=== PATIENT | female | born 1985 | race Caucasian/White ===

== ENCOUNTER 2016-08-31 04:25 | Emergency (ER) | payer MEDICAID ==
[~2016-08-31] VITALS: Ht 162.6 cm; Wt 87.0 kg
[~2016-08-31 04:25] MED LIST: HYDR-3138 PO; IBUP800T PO; OXYC-302 PO
[2016-08-31] MEDS ORDERED: DEXAMETHASONE 4 MG TABLET PO ONE (05:30)
[2016-08-31] MEDS ORDERED: DEXAMETHASONE 4 MG TABLET ONE (05:38)
[2016-08-31 05:44] VITALS: BP 120/69
== END 2016-08-31 05:47 | disposition home or self-care (01) ==
LOC: ED 04:31
DX: J02.0 Streptococcal pharyngitis (principal); K12.0 Recurrent oral aphthae
CPT/HCPCS: 99283

== ENCOUNTER 2017-09-13 11:33 | Emergency (ER) | payer MEDICAID ==
[~2017-09-13] VITALS: Ht 162.6 cm; Wt 79.4 kg
[~2017-09-13 11:33] MED LIST changes: -HYDR-3138 PO; +HYDR-3237 PO; +IBUP-1223 PO; -IBUP800T PO
[2017-09-13 11:36] VITALS: BP 116/75
== END 2017-09-13 12:27 | disposition home or self-care (01) ==
LOC: ED 12:15
DX: K08.89 Other specified disorders of teeth and supporting structures (principal); J45.909 Unspecified asthma, uncomplicated
CPT/HCPCS: 99283

== ENCOUNTER 2018-07-10 16:25 | Inpatient (IN) | payer MEDICAID ==
[~2018-07-10] VITALS: Ht 165.1 cm; Wt 68.0 kg
--- NOTE | 2018-07-10 16:35 | NUR ---
LUNCH RN: MD TO BEDSIDE TO ASSESS PT.
[2018-07-10] MEDS ORDERED: ZIPRASIDONE 20 MG INJ IM ONE ×2 (17:08→17:30)
--- NOTE | 2018-07-10 17:15 | NUR ---
Patient being combative with staff. No easily redirected or verbally de-secalated. Yi admin.
[2018-07-10 17:30] LABS: ANION GAP 13 mmol/L (5-15); CALCIUM 8.7 mg/dL (8.5-10.1); CHLORIDE 110 mmol/L (98-107); CREATININE 0.92 mg/dL (0.55-1.02)
[2018-07-10 17:34] LABS: SALICYLATE LEVEL < 1.7 mg/dL (2.8-20.0)
[2018-07-10 17:35] LABS: ACETAMINOPHEN < 2 mcg/mL (10-30)
--- NOTE | 2018-07-10 17:35 | NUR ---
RN assisted patient to restroom to attempt to collect urine. Unable to provided urine at this time.
--- NOTE | 2018-07-10 17:39 | NUR ---
TP RN: HBI TO ASSESS PT
[2018-07-10 17:41] LABS: BASOPHILS # (AUTO) 0.02 x10^3/uL (0-0.1); BASOPHILS % (AUTO) 0 % (0-1); EOSINOPHILS # (AUTO) 0.12 x10^3/uL (0-0.4); EOSINOPHILS % (AUTO) 1 % (1-7); LYMPHOCYTES # (AUTO) 2.29 x10^3/uL (1-3.4); LYMPHOCYTES % (AUTO) 27 % (22-44); MD NO; MEAN CORPUSCULAR HEMOGLOBIN 30.2 pg (27.0-34.8); MEAN CORPUSCULAR HGB CONC 34.3 g/dL (32.4-35.8); MEAN CORPUSCULAR VOLUME 88.2 fL (80-100); MEAN PLATELET VOLUME 9.1 fL (7.4-10.4); MONOCYTES # (AUTO) 0.74 x10^3/uL (0.2-0.8); MONOCYTES % (AUTO) 9 % (2-9); NEUTROPHILS % (AUTO) 63 % (42-75); PLATELET COUNT 268 x10^3/uL (130-400); RED BLOOD COUNT 4.38 x10^6/uL (3.82-5.3); RED CELL DISTRIBUTION WIDTH 13.9 % (9.6-15.2)
--- NOTE | 2018-07-10 17:57 | NUR ---
TP RN: DEB HERE TO ASSESS PT
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
--- NOTE | 2018-07-10 19:20 | NUR ---
Ambulated with a steady gait to the restroom. VSS. at bedside.
[2018-07-10] MEDS ORDERED: POTASSIUM CHLORIDE 20 MEQ TAB.ER.PRT PO ONE (19:30)
[2018-07-10] MEDS ORDERED: POTASSIUM CHLORIDE 20 MEQ TAB.ER.PRT ONE (19:56)
[2018-07-10] MEDS ORDERED: NICOTINE 7 MG/24 HR PATCH.TD24 ONE (19:56)
[2018-07-10 19:57] LABS: AMPHETAMINE SCREEN, URINE Positive (Negative); BARBITURATE SCREEN, URINE Negative (Negative); BENZODIAZEPINE SCREEN, URINE Negative (Negative); CANNABINOID SCREEN, URINE Positive (Negative); COCAINE SCREEN, URINE Negative (Negative); METHADONE SCREEN, URINE Negative (Negative); OPIATE SCREEN, URINE Negative (Negative)
[2018-07-10] MEDS ORDERED: ONDANSETRON ODT 4 MG PO PRN (20:00)
[2018-07-10] MEDS ORDERED: POLYETHYLENE GLYCOL 17 GM PACKET PO PRN (20:00)
[2018-07-10] MEDS ORDERED: NICOTINE 7 MG/24 HR PATCH.TD24 TD SCH (20:00)
[2018-07-10] MEDS ORDERED: BISACODYL 10 MG SUPP PR PRN (20:00)
[2018-07-10] MEDS ORDERED: ZIPRASIDONE 20MG CAPSULE PO PRN (20:00)
[2018-07-10] MEDS ORDERED: BENZTROPINE 1 MG TABLET PO PRN (20:00)
[2018-07-10] MEDS ORDERED: ACETAMINOPHEN 325 MG TABLET PO PRN (20:00)
--- NOTE | 2018-07-10 20:01 | NUR ---
PO K+ admin. Unable to chart in eMAR.
--- NOTE | 2018-07-10 20:14 | NUR ---
THROUGHPUT RN: PACKET FAXED TO [facility]
--- NOTE | 2018-07-10 20:27 | NUR ---
Provided [facility] blankets.
--- NOTE | 2018-07-10 21:12 | NUR ---
PT SLEEPING ON GURNEY AT THIS TIME, ROOM SECURED AND SITTER AT DOORWAY.
[2018-07-10 23:00] VITALS: BP 104/63
[2018-07-11 06:25] LABS: CALCIUM 8.8 mg/dL (8.5-10.1); CHLORIDE 113 mmol/L (98-107)
[2018-07-11 06:29] LABS: ANION GAP 12 mmol/L (5-15); CREATININE 0.74 mg/dL (0.55-1.02)
[2018-07-11 07:43] VITALS: BP 94/49
[2018-07-11] MEDS ORDERED: SENNA/DOCUSATE TABLET PO SCH (09:00)
[2018-07-11 09:41] VITALS: BP 117/66
== END 2018-07-11 12:04 | DRG 885 ==
LOC: ED 16:58 → EDIP 20:11 → 2N 22:24
PROVIDERS: ADMIT Family Medicine; ATTEND Family Medicine
DX: F23 Brief psychotic disorder (principal); E87.2 Acidosis; F17.213 Nicotine dependence, cigarettes, with withdrawal; E87.6 Hypokalemia; F12.90 Cannabis use, unspecified, uncomplicated; F15.10 Other stimulant abuse, uncomplicated; G43.909 Migraine, unspecified, not intractable, without status migrainosus; F41.9 Anxiety disorder, unspecified; F43.10 Post-traumatic stress disorder, unspecified; Z91.14 Patient's other noncompliance with medication regimen; Z98.51 Tubal ligation status
CPT/HCPCS: 36415; 80048; 80307; 80329; 82040; 83735; 84703; 85025; 96372; 99285; G0378; J3486; G0480

== ENCOUNTER 2018-08-15 15:40 | Emergency (ER) | payer MEDICAID ==
[~2018-08-15] VITALS: Ht 162.6 cm; Wt 76.0 kg
[2018-08-15 15:51] VITALS: BP 100/61
[2018-08-15] MEDS ORDERED: OXYcodone/APAP 5/325MG TABLET ONE (16:17)
--- NOTE | 2018-08-15 16:23 | NUR ---
MEDICATED FOR DENTAL PAIN
[2018-08-15] MEDS ORDERED: OXYcodone/APAP 5/325MG TABLET PO ONE (16:30)
== END 2018-08-15 16:35 | disposition home or self-care (01) ==
LOC: ED 16:28
DX: K02.9 Dental caries, unspecified (principal); J45.909 Unspecified asthma, uncomplicated; F41.1 Generalized anxiety disorder; F43.10 Post-traumatic stress disorder, unspecified
CPT/HCPCS: 99283

== ENCOUNTER 2019-05-13 11:20 | Emergency (ER) | payer MEDICAID ==
[~2019-05-13] VITALS: Ht 162.6 cm; Wt 89.4 kg
[2019-05-13 11:22] VITALS: BP 113/71
--- NOTE | 2019-05-13 12:35 | NUR ---
TO ROOM FROM LOBBY. NAD.
--- NOTE | 2019-05-13 12:55 | NUR ---
ISO GEAR OUTSIDE OF ROOM. BATHROOM ACROSS FROM PT ROOM ASSIGNED TO THIS FAMILY, SIGN PLACED ON DOOR TO PREVENT OTHERS FROM USING. PATIENTS COMPLIANT WITH MASKS. DENY ANY NEEDS OR CONCERNS AT THIS TIME. CALL LIGHT IN REACH, AWAITING ERP AT THIS TIME.
== END 2019-05-13 14:06 | disposition home or self-care (01) ==
LOC: ED 14:00
DX: R05 Cough (principal); J45.909 Unspecified asthma, uncomplicated
CPT/HCPCS: 87265; 99283

== ENCOUNTER 2020-03-15 13:25 | Inpatient (IN) | payer MEDICAID ==
[~2020-03-15] VITALS: Ht 162.6 cm; Wt 74.4 kg
[2020-03-15 13:54] LABS: MEAN CORPUSCULAR HEMOGLOBIN 32.5 pg (27.0-34.8); MEAN CORPUSCULAR HGB CONC 35.4 g/dL (32.4-35.8); MEAN PLATELET VOLUME 8.8 fL (7.4-10.4); PLATELET COUNT 290 x10^3/uL (130-400)
[2020-03-15 13:59] LABS: MD YES
[2020-03-15 14:05] LABS: ALANINE AMINOTRANSFERASE 19 U/L (12-78); ALBUMIN 3.4 g/dL (3.4-5.0); ANION GAP 11 mmol/L (5-15); CALCIUM 9.7 mg/dL (8.5-10.1); CHLORIDE 88 mmol/L (98-107); CREATININE 1.15 mg/dL (0.55-1.02)
[2020-03-15 14:10] LABS: ALKALINE PHOSPHATASE 123 U/L (45-117); BILIRUBIN,TOTAL 0.5 mg/dL (0.2-1.0); TOTAL PROTEIN 8.8 g/dL (6.4-8.2)
[2020-03-15] MEDS ORDERED: SODIUM CHLORIDE 0.9% 1,000ML IVBOLUS ONE ×2 (14:30→15:30)
[2020-03-15] MEDS ORDERED: morphine SULFATE 10 MG/ML, 1ML IVPush ONE (14:30)
[2020-03-15] MEDS ORDERED: ONDANSETRON 2MG/ML, 2ML IVPush ONE (14:30)
[2020-03-15] MEDS ORDERED: SODIUM CHLORIDE FLUSH 10ML SYR IVF ONE (14:30)
[2020-03-15] MEDS ORDERED: FAMOTIDINE 20 MG/2 ML IV ONE (14:30)
[2020-03-15] MEDS ORDERED: MORPHINE SULFATE 4 MG/ML, 1ML ONE (14:38)
[2020-03-15] MEDS ORDERED: ONDANSETRON 2MG/ML, 2ML ONE ×3 (14:38→20:18)
[2020-03-15] MEDS ORDERED: FAMOTIDINE 20 MG/2 ML ONE (14:38)
--- NOTE | 2020-03-15 14:45 | NUR ---
PT TAKEN TO CT
[2020-03-15 14:48] LABS: MICROSCOPIC INDICATED
--- NOTE | 2020-03-15 14:56 | NUR ---
RETURNS FROM CT
[2020-03-15] MEDS ORDERED: DIPHENHYDRAMINE 50 MG/ML, 1ML ONE (14:59)
--- NOTE | 2020-03-15 15:00 | NUR ---
new rash that starts near IV site is noted. notified
[2020-03-15] MEDS ORDERED: OMNIPAQUE 350 MG/ML, 100ML BOTTLE ONE (15:06)
[2020-03-15] MEDS ORDERED: methylPREDNISolone SOD SUCC 125 MG/2 ML ONE (15:10)
[2020-03-15 15:17] LABS: BAND#(MANUAL) 7.25 x10^3/uL; BANDS%(MANUAL) 28 % (0-7); LYMPH#(MANUAL) 2.33 x10^3/uL (1-3.4); LYMPHS% (MANUAL) 9 % (22-44); MONOS#(MANUAL) 0.26 x10^3/uL (0.3-2.7); MONOS% (MANUAL) 1 % (2-9); MYELOCYTES# (MANUAL) 3.37 x10^3/uL (0-0); MYELOCYTES% (MANUAL) 13 % (0-0); SEG#(MANUAL) 12.69 x10^3/uL (1.8-6.8); SEGS% (MANUAL) 49 % (42-75)
[2020-03-15 15:19] LABS: <RBC MORPHOLOGY> NORMAL
[2020-03-15 15:20] LABS: <PLATELET ESTIMATE> ADEQUATE; <PLT MORPHOLOGY> NORMAL PLT MORPH
[2020-03-15] MEDS ORDERED: methylPREDNISolone SOD SUCC 125 MG/2 ML IVPush SCH (15:30)
[2020-03-15] MEDS ORDERED: CEFTRIAXONE PMX 1GM/50ML 50 ML IV ONE (15:30)
[2020-03-15] MEDS ORDERED: DIPHENHYDRAMINE 50 MG/ML, 1ML IVPush ONE (15:30)
[2020-03-15] MEDS ORDERED: CEFTRIAXONE PMX 1GM/50ML 50 ML ONE (15:30)
--- NOTE | 2020-03-15 15:34 | NUR ---
pt resting in bed. vss. rash has improved to L wrist.
--- NOTE | 2020-03-15 16:07 | NUR ---
pt up to bathroom. second urine sample sent. hospitalist at bedside.
[2020-03-15] MEDS ORDERED: SODIUM CHLORIDE 0.9% 1,000 ML IV SCH (16:30)
[2020-03-15] MEDS ORDERED: NS + 40MEQ KCL 1,000 ML IV SCH (16:30)
[2020-03-15] MEDS ORDERED: MORPHINE SULFATE 4 MG/ML, 1ML IVPush PRN (16:30)
[2020-03-15] MEDS ORDERED: METRONIDAZOLE PMX 500MG/100ML 100 ML ONE (16:39)
[2020-03-15] MEDS: METRONIDAZOLE PMX 500MG/100ML 100 ML IV SCH (16:41)
[2020-03-15] MEDS: ONDANSETRON 2MG/ML, 2ML IVPush PRN ×2 (16:41→20:21)
[2020-03-15] MEDS ORDERED: ENOXAPARIN 40 MG/0.4 ML ONE (17:20)
[2020-03-15] MEDS ORDERED: NS + 40MEQ KCL 1,000 ML IV ONE (17:20)
[2020-03-15] MEDS: ENOXAPARIN 40 MG/0.4 ML SQ SCH (17:33)
[2020-03-15] MEDS ORDERED: KETOROLAC 30 MG/1 ML ONE (20:18)
[2020-03-15] MEDS: KETOROLAC 30 MG/1 ML IV PRN (20:21)
--- NOTE | 2020-03-15 21:03 | NUR ---
NEW IV PLACED ON RT A/C 20G PT RT WRIST IV WAS HURTING,NO NEW COMPLAINTS TORDAL AND ZOFRAN GIVEN PT SLEEPING...
--- NOTE | 2020-03-15 23:04 | NUR ---
PT SLEEPING NO DISTRESS NOTED
--- NOTE | 2020-03-16 00:19 | NUR ---
PT SLEEPING NO DISTRESS NOTED...
[2020-03-16] MEDS: METRONIDAZOLE PMX 500MG/100ML 100 ML IV SCH ×3 (00:30→18:12)
--- NOTE | 2020-03-16 01:18 | NUR ---
Covering for break; pt sleeping, RR equal and unlabored.
--- NOTE | 2020-03-16 01:37 | NUR ---
Up ambulates to bathroom, steady gait. Back to monitor, call wright in reach/monitor on.
[2020-03-16] MEDS ORDERED: METRONIDAZOLE PMX 500MG/100ML 100 ML ONE (02:30)
--- NOTE | 2020-03-16 03:46 | NUR ---
PT SLEEPNG NO NEW COMPLAINTS VITALS IN...
[2020-03-16 05:00] LABS: MEAN CORPUSCULAR HEMOGLOBIN 31.4 pg (27.0-34.8); MEAN CORPUSCULAR HGB CONC 34.2 g/dL (32.4-35.8); MEAN PLATELET VOLUME 8.6 fL (7.4-10.4); PLATELET COUNT 234 x10^3/uL (130-400); RED BLOOD COUNT 3.94 x10^6/uL (3.82-5.3)
[2020-03-16 05:05] LABS: ANION GAP 6 mmol/L (5-15); CALCIUM 8.4 mg/dL (8.5-10.1); CHLORIDE 102 mmol/L (98-107); CREATININE 0.79 mg/dL (0.55-1.02)
[2020-03-16 05:45] LABS: MD YES
[2020-03-16 05:46] LABS: <RBC MORPHOLOGY> NORMAL; BAND#(MANUAL) 2.22 x10^3/uL; BANDS%(MANUAL) 15 % (0-7); LYMPHS% (MANUAL) 2 % (22-44); MONOS#(MANUAL) 0.44 x10^3/uL (0.3-2.7); MONOS% (MANUAL) 3 % (2-9); SEG#(MANUAL) 11.84 x10^3/uL (1.8-6.8); SEGS% (MANUAL) 80 % (42-75)
[2020-03-16 05:47] LABS: <PLATELET ESTIMATE> ADEQUATE; <PLT MORPHOLOGY> NORMAL PLT MORPH
[2020-03-16] MEDS ORDERED: KETOROLAC 30 MG/1 ML ONE (06:42)
[2020-03-16] MEDS ORDERED: ONDANSETRON 2MG/ML, 2ML ONE (06:42)
[2020-03-16] MEDS: KETOROLAC 30 MG/1 ML IV PRN (06:44)
[2020-03-16] MEDS: ONDANSETRON 2MG/ML, 2ML IVPush PRN ×2 (06:45→15:39)
[2020-03-16 07:54] LABS: PROTHROMBIN TIME 10.6 Seconds (9.6-11.5)
--- NOTE | 2020-03-16 08:14 | NUR ---
JOSE (MOTHER IN LAW) [phone]
--- NOTE | 2020-03-16 09:00 | NUR ---
NG TUBE PLACED HOWEVER PT COULD NOT TOLERATE AND DEMONSTRATED ANXIETY. PT REQUEST TO REMOVE AND WAS REMOVED BY THIS RN.
--- NOTE | 2020-03-16 09:40 | NUR ---
CONTACTED BENJAMIN (MOTHER) [phone] PER PT REQUEST. FAMILY AWARE OF PT REQUEST TO BRING CELL PHONE AND [employer]ERINARIAN
--- NOTE | 2020-03-16 09:55 | NUR ---
DISCUSSED WITH DR VILLALTA PT REFUSING NG AT THIS TIME. CLARIFIED PT NPO STATUS TO CONTINUE W/O ICE CHIPS
[2020-03-16] MEDS: INSULIN LISPRO 100 UNITS/ML, PEN SQ-INSULIN SCH ×3 (12:51→20:13)
[2020-03-16 14:38] VITALS: BP 109/69
[2020-03-16] MEDS ORDERED: FLU VACC QS2020-21(6MOS UP)/PF 60MCG/0.5 ML SYR IM-VACC ONE (15:00)
[2020-03-16] MEDS: NS + 40MEQ KCL 1,000 ML IV SCH (15:38)
[2020-03-16] MEDS: CEFTRIAXONE PMX 1GM/50ML 50 ML IV SCH (16:14)
[2020-03-16] MEDS: ENOXAPARIN 40 MG/0.4 ML SQ SCH (18:12)
[2020-03-16 19:43] VITALS: BP 97/62
[2020-03-16] MEDS: LORazepam 2 MG/ML, 1ML IVPush PRN (21:27)
[2020-03-17] MEDS: METRONIDAZOLE PMX 500MG/100ML 100 ML IV SCH ×3 (01:04→17:35)
[2020-03-17 01:12] VITALS: BP 103/62
[2020-03-17] MEDS: NS + 40MEQ KCL 1,000 ML IV SCH ×2 (02:31→16:17)
[2020-03-17] MEDS: KETOROLAC 30 MG/1 ML IV PRN ×2 (05:37→20:16)
[2020-03-17 06:32] LABS: MEAN CORPUSCULAR HEMOGLOBIN 31.4 pg (27.0-34.8); MEAN CORPUSCULAR HGB CONC 33.9 g/dL (32.4-35.8); MEAN PLATELET VOLUME 8.4 fL (7.4-10.4); PLATELET COUNT 229 x10^3/uL (130-400); RED BLOOD COUNT 3.56 x10^6/uL (3.82-5.3); RED CELL DISTRIBUTION WIDTH 13.1 % (9.6-15.2)
[2020-03-17 06:42] LABS: ANION GAP 6 mmol/L (5-15); CALCIUM 8.4 mg/dL (8.5-10.1); CHLORIDE 110 mmol/L (98-107); CREATININE 0.66 mg/dL (0.55-1.02)
[2020-03-17] MEDS: INSULIN LISPRO 100 UNITS/ML, PEN SQ-INSULIN SCH ×4 (06:55→20:35)
[2020-03-17] MEDS ORDERED: POTASSIUM CHLORIDE 40 MEQ in SODIUM CHLORIDE 0.9% 500 ML IV ONE (07:30)
[2020-03-17 07:47] LABS: MD YES
[2020-03-17 07:49] LABS: <PLATELET ESTIMATE> ADEQUATE; <PLT MORPHOLOGY> NORMAL PLT MORPH; <RBC MORPHOLOGY> NORMAL; BAND#(MANUAL) 0.54 x10^3/uL; BANDS%(MANUAL) 4 % (0-7); LYMPH#(MANUAL) 0.81 x10^3/uL (1-3.4); LYMPHS% (MANUAL) 6 % (22-44); MONOS#(MANUAL) 0.81 x10^3/uL (0.3-2.7); MONOS% (MANUAL) 6 % (2-9); SEG#(MANUAL) 11.34 x10^3/uL (1.8-6.8); SEGS% (MANUAL) 84 % (42-75)
[2020-03-17 08:08] VITALS: BP 109/71
[2020-03-17] MEDS: LORazepam 2 MG/ML, 1ML IVPush PRN ×2 (08:49→20:25)
[2020-03-17] MEDS: NICOTINE 7 MG/24 HR PATCH.TD24 TD SCH (08:49)
[2020-03-17] MEDS: ONDANSETRON ODT 4 MG PO PRN (08:55)
[2020-03-17] MEDS: CEFTRIAXONE PMX 1GM/50ML 50 ML IV SCH (15:21)
[2020-03-17 15:59] VITALS: BP 121/75
[2020-03-17] MEDS ORDERED: SERT-237 PO (16:03)
[2020-03-17] MEDS ORDERED: ZIPR40CA3 PO (16:03)
[2020-03-17] MEDS ORDERED: IBUP-1223 PO (16:03)
[2020-03-17] MEDS ORDERED: HYDR-3237 PO (16:03)
[2020-03-17] MEDS ORDERED: BUSP5TAB2 PO (16:03)
[2020-03-17] MEDS ORDERED: TRAZ50TA66 PO (16:03)
[2020-03-17] MEDS: ENOXAPARIN 40 MG/0.4 ML SQ SCH (17:35)
[2020-03-17] MEDS: ONDANSETRON 2MG/ML, 2ML IVPush PRN (18:07)
[2020-03-17 19:52] VITALS: BP 124/80
[2020-03-17] MEDS ORDERED: ZIPRASIDONE 40MG CAPSULE PO SCH (21:00)
[2020-03-17] MEDS: BUSPIRONE 5 MG TABLET PO SCH (21:00)
[2020-03-18 00:30] VITALS: BP 124/72
[2020-03-18] MEDS: METRONIDAZOLE PMX 500MG/100ML 100 ML IV SCH (01:21)
[2020-03-18] MEDS: NS + 40MEQ KCL 1,000 ML IV SCH ×2 (05:13→13:40)
[2020-03-18 06:19] LABS: ANION GAP 5 mmol/L (5-15); CHLORIDE 111 mmol/L (98-107)
[2020-03-18 06:20] LABS: CALCIUM 8.1 mg/dL (8.5-10.1); CREATININE 0.52 mg/dL (0.55-1.02)
[2020-03-18] MEDS: INSULIN LISPRO 100 UNITS/ML, PEN SQ-INSULIN SCH ×2 (07:00→11:00)
[2020-03-18 07:10] VITALS: BP 121/76
[2020-03-18] MEDS: metroNIDAZOLE 500 MG TABLET PO SCH ×3 (08:29→15:09)
[2020-03-18] MEDS: BUSPIRONE 5 MG TABLET PO SCH (08:31)
[2020-03-18] MEDS: NICOTINE 7 MG/24 HR PATCH.TD24 TD SCH (08:31)
[2020-03-18] MEDS: ONDANSETRON ODT 4 MG PO PRN ×2 (08:42→12:46)
[2020-03-18] MEDS ORDERED: AMOXICILLIN 500 MG CAPSULE PO SCH (09:00)
[2020-03-18] MEDS ORDERED: SERTRALINE 100MG TABLET PO SCH (09:00)
[2020-03-18] MEDS ORDERED: METR500T PO (10:12)
[2020-03-18] MEDS ORDERED: AMOX-291 PO (10:12)
[2020-03-18] MEDS ORDERED: NICO-485 TD (10:12)
[2020-03-18 13:40] VITALS: BP 162/82
== END 2020-03-18 15:45 | disposition home or self-care (01) | DRG 872 ==
LOC: ED 14:40 → EDIP 15:29 → 3N 03-16 14:30 → DCLOUNGE 03-18 15:39
PROVIDERS: ADMIT Hospitalist; ATTEND Hospitalist
DX: A41.9 Sepsis, unspecified organism (principal); E87.1 Hypo-osmolality and hyponatremia; K56.600 Partial intestinal obstruction, unspecified as to cause; N12 Tubulo-interstitial nephritis, not specified as acute or chronic; B19.20 Unspecified viral hepatitis C without hepatic coma; E87.6 Hypokalemia; F17.210 Nicotine dependence, cigarettes, uncomplicated; F20.9 Schizophrenia, unspecified; F43.10 Post-traumatic stress disorder, unspecified; K52.9 Noninfective gastroenteritis and colitis, unspecified; G43.909 Migraine, unspecified, not intractable, without status migrainosus; F19.10 Other psychoactive substance abuse, uncomplicated; R73.9 Hyperglycemia, unspecified; Z98.51 Tubal ligation status; Z23 Encounter for immunization
CPT/HCPCS: 36415; 74018; 74177; 74250; 80048; 80053; 81001; 82330; 82962; 83036; 83605; 83690; 83735; 84703; 85025; 85610; 87040; 87086; 90686; 96374; 96375; G0378; J0696; J1650; J1885; J2405; J3480; Q0162; Q9967; J1200; J2060; J2270; J2930; J7030; J7040